=== PATIENT | male | born 1980 | race Caucasian/White ===

== ENCOUNTER 2018-02-17 13:39 | Emergency (ER) | payer SELFPAY ==
[~2018-02-17] VITALS: Ht 172.7 cm; Wt 60.0 kg
[2018-02-17 13:45] VITALS: BP 118/60
== END 2018-02-17 19:35 | disposition left against medical advice (07) ==
LOC: ER 13:39
DX: L98.9 Disorder of the skin and subcutaneous tissue, unspecified (principal); Z53.21 Procedure and treatment not carried out due to patient leaving prior to being seen by health care provider